=== PATIENT | female | born 1930 | race Caucasian/White ===

== ENCOUNTER 2018-07-02 16:20 | Inpatient (IN) | payer OTHER ==
--- NOTE | 2018-07-02 16:56 | PDOC ---
History of Present Illness - General History Source: Patient Exam Limitations: No Limitations - History of Present Illness Initial Comments: 07/02/18 17:18 The patient is a 87 year old female, with a significant past medical history of R hip replacement and coccyx fracture who presents to the emergency department with an injury s/p fall. The patient reports she was walking around 3:50pm, tripped over a small branch that got tangled on her feet, and fell on her L hip. The patient notes she endorses pain and discomfort across her pelvic region and left hip, secondary to her fall. The patient notes she slowly got up after her fall, scooted to a near bench, and sat down. The patient denies back pain, spine pain, LOC, or hitting her head. The patient denies chest pain, shortness of breath, or dizziness. The patient denies fevers, chills, nausea, vomiting, diarrhea, or constipation. Allergies: latex, penicillins, ibuprofen, and naproxen. Past surgical history: R hip replacement, 3 D&C, breast biopsy, bladder sling, hernia repair, coccyx fracture and both ovaries removed Social history: None reported PCP: Dmitri Brasher <Bre Valle - Last Filed: 07/02/18 17:26> <Arcenio Cruz - Last Filed: 07/02/18 19:01> - General Chief Complaint: Injury Stated Complaint: FELL Time Seen by Provider: 07/02/18 16:43 Past History <Bre Valle - Last Filed: 07/02/18 17:26> - Past Medical History Anemia: No Asthma: No Cancer: No Cardiac Disorders: No CVA: No COPD: No CHF: No Dementia: No Diabetes: No GI Disorders: No Disorders: No HTN: No Hypercholesterolemia: No Liver Disease: No Seizures: No Thyroid Disease: No - Surgical History Abdominal Surgery: Yes (TUBAL LIGATION 1969) Appendectomy: No Cardiac Surgery: No Cholecystectomy: No Lung Surgery: No Neurologic Surgery: No Orthopedic Surgery: Yes (THR RIGHT 2005) - Suicide/Smoking/Psychosocial Hx Smoking History: Never smoked Have you smoked in the past 12 months: No Hx Alcohol Use: Yes (OCCASIONAL) Drug/Substance Use Hx: No Substance Use Type: Alcohol Hx Substance Use Treatment: No <Arcenio Cruz - Last Filed: 07/02/18 19:01> - Past Medical History Allergies/Adverse Reactions: Allergies Allergy/AdvReac Type Severity Reaction Status Date / Time latex [Latex] Allergy Unknown Rash Verified 07/02/18 16:32 Penicillins Allergy Unknown Rash Verified 07/02/18 16:32 ibuprofen [From Motrin] AdvReac Mild STOMACH Verified 07/02/18 16:32 ACHE naproxen [From Naprosyn] AdvReac Mild STOMACH Verified 07/02/18 16:32 ACHE ADHESIVE TAPE Allergy Mild Rash Uncoded 07/02/18 16:32 Home Medications: Ambulatory Orders Cholecalciferol (Vitamin D3) [Vitamin D3 -] 500 unit PO DAILY 07/02/18 Cranberry Fruit [Cranberry] 400 mg PO BID 07/02/18 Red Yeast Rice 1,200 mg PO DAILY 07/02/18 Red Yeast Rice 600 mg PO HS 07/02/18 Vit A/Vit C/Vit E/Zinc/Copper [Icaps Areds Formula Tablet] 1 each PO BID Review of Systems - Review of Systems Able to Perform ROS?: Yes Comments:: 07/02/18 17:19 CONSTITUTIONAL: Absent: Fever, Chills, Diaphoresis, Generalized Weakness, Malaise, Loss of Appetite HEENT: Absent: Rhinorrhea, Nasal Congestion, Throat Pain, Throat Swelling, Difficulty Swallowing, Mouth Swelling, Ear Pain, Eye Pain, Visual Changes CARDIOVASCULAR: Absent: Chest Pain, Syncope, Palpitations, Irregular Heart Rate, Lightheadedness , Peripheral Edema RESPIRATORY: Absent: Cough, Shortness of Breath, SOB with Exertion, Orthopnea, Wheezing, Stridor, Hemoptysis GASTROINTESTINAL: Absent: Abdominal pain, Abdominal Distension, Nausea, Vomiting, Diarrhea, Constipation, Melena, Hematochezia GENITOURINARY: Absent: Dysuria, Frequency, Urgency, Hesitancy, Flank Pain, Genital Pain MUSCULOSKELETAL: Present: hip pain and hip discomfort. Pelvic discomfort. Absent: Myalgia, Arthralgia, Joint Swelling, Back pain, Neck Pain SKIN: Absent: Rash, Itching, Pallor HEMEATOLOGIC/IMMUNOLOGIC: Absent: Easy Bleeding, Easy Bruising, Lymphadenopathy, Frequent infections ENDOCRINE: Absent: Unexplained Weight Gain, Unexplained Weight Loss, Heat Intolerance, Cold Intolerance NEUROLOGIC: Absent: Headache, Focal Weakness, Paresthesias, Vertigo, Lightheadedness, Unsteady Gait, Seizure, Mental Status Changes, Incontinence PSYCHIATRIC: Absent: Anxiety, Depression All Other Systems: Reviewed and Negative <Bre Valle - Last Filed: 07/02/18 17:26> *Physical Exam - Vital Signs Last Vital Signs Temp Pulse Resp BP Pulse Ox 97.7 F 86 16 182/86 H 95 07/02/18 16:25 07/02/18 16:25 07/02/18 16:25 07/02/18 16:25 07/02/18 16:25 - Physical Exam Comments: 07/02/18 17:20 GENERAL: The patient is awake, alert, and fully oriented, in no acute distress. HEAD: Normal with no signs of trauma. EYES: Pupils equal, round and reactive to light, extraocular movements intact, sclera anicteric, conjunctiva clear. ENT: Ears normal, nares patent, oropharynx clear without exudates. Moist mucous membranes. NECK: Normal range of motion, supple without lymphadenopathy, JVD, or masses. LUNGS: Breath sounds equal, clear to auscultation bilaterally. No wheezes, and no crackles. HEART: Regular rate and rhythm, normal S1 and S2 without murmur, rub or gallop. ABDOMEN: Soft, nontender, normoactive bowel sounds. No guarding, no rebound. No masses. PELVIC: (+) tenderness in the L posterior hip region. No deformity, No retention. EXTREMITIES: Normal distal pulses and sensation. Normal range of motion, no edema. No clubbing or cyanosis. No cords, erythema, or tenderness. NEUROLOGICAL: Cranial nerves II through XII grossly intact. Normal speech, normal gait. PSYCH: Normal mood, normal affect. SKIN: Warm, Dry, normal turgor, no rashes or lesions noted. <Bre Valle - Last Filed: 07/02/18 17:26> - Vital Signs Last Vital Signs Temp Pulse Resp BP Pulse Ox 97.7 F 86 16 182/86 H 95 07/02/18 16:25 07/02/18 16:25 07/02/18 16:25 07/02/18 16:25 07/02/18 16:25 <Arcenio Cruz - Last Filed: 07/02/18 19:01> Moderate Sedation - Procedure Monitoring Vital Signs: Procedure Monitoring Vital Signs Temperature 97.7 F 07/02/18 16:25 Pulse Rate 86 07/02/18 16:25 Respiratory Rate 16 07/02/18 16:25 Blood Pressure 182/86 H 07/02/18 16:25 O2 Sat by Pulse Oximetry (%) 95 07/02/18 16:25 <Bre Valle - Last Filed: 07/02/18 17:26> - Procedure Monitoring Vital Signs: Procedure Monitoring Vital Signs Temperature 97.7 F 07/02/18 16:25 Pulse Rate 86 07/02/18 16:25 Respiratory Rate 16 07/02/18 16:25 Blood Pressure 182/86 H 07/02/18 16:25 O2 Sat by Pulse Oximetry (%) 95 07/02/18 16:25 <Arcenio Cruz - Last Filed: 07/02/18 19:01> ED Treatment Course - RADIOLOGY Radiology Studies Ordered: Category Date Time Status HIP & PELVIS-LEFT [RAD] Stat Radiology 07/02/18 16:54 Ordered <Arcenio Cruz - Last Filed: 07/02/18 19:01> Medical Decision Making - Medical Decision Making 07/02/18 18:57 patient is healthy, active 87 y/o [place] out on [place] [employer] [place] [employer] [place] today when she tripped over a branch on the trail daughter tried to catch her but she fell onto the left side no head or neck injury fell onto left hip and now with left hip pain radiating across the pelvis unable to get up or weight bear at all exam with tenderness to L hip area and to L ischial area skin intact, neuro sensation and motor intact cap refill and pulses intact no shortening or rotation of the leg able to flex the hip with some pain xrays of L hip without visible fx pelvis films with questionable fx assess: clinically high suspicion for hip or pelvis fx, but no obvious fx on plain films MRI is not available, so will get CT scan endorsed to Dr Nova pending CT of hip and pelvis <Arcenio Cruz - Last Filed: 07/02/18 19:01> *DC/Admit/Observation/Transfer - Attestations Scribe Attestion: 07/02/18 17:21 Documentation prepared by Bre Valle, acting as medical technologist microbiology for Arcenio Cruz MD <Bre Valle - Last Filed: 07/02/18 17:26> - Attestations Physician Attestion: 07/02/18 19:00 reviewed documentation by scribe and corrected as needed <Arcenio Cruz - Last Filed: 07/02/18 19:01> Diagnosis at time of Disposition: Injury of left hip Qualifiers: Encounter type: initial encounter Qualified Code(s): S79.912A - Unspecified injury of left hip, initial encounter - Referrals Referrals: Dmitri Flores MD [Primary Care Provider] - - Patient Instructions - Post Discharge Activity
--- NOTE | 2018-07-02 19:56 | PDOC ---
*Physical Exam - Vital Signs Last Vital Signs Temp Pulse Resp BP Pulse Ox 97.7 F 86 16 182/86 H 95 07/02/18 16:25 07/02/18 16:25 07/02/18 16:25 07/02/18 16:25 07/02/18 16:25 ED Treatment Course - LABORATORY CBC & Chemistry Diagram: 07/03/18 00:05 07/03/18 00:05 - ADDITIONAL ORDERS Additional order review: Laboratory Results 07/02/18 19:37 Urine Color Yellow Urine Appearance Clear Urine pH 7.5 Urine Protein Negative Urine Glucose (UA) Negative Urine Ketones Negative Urine Blood Negative Urine Nitrite Negative Urine Bilirubin Negative Urine Urobilinogen 0.2 Ur Leukocyte Esterase Trace - Medications Given in the ED: ED Medications Discontinued Medications Generic Name Dose Route Start Last Admin Trade Name Freq PRN Reason Stop Dose Admin Oxycodone/Acetaminophen 1 combo 07/02/18 17:31 07/02/18 17:35 Percocet 5/325 - PO 07/02/18 17:32 1 combo ONCE ONE Administration Medical Decision Making - Medical Decision Making 07/02/18 21:02 Care of this patient received from . CT of the pelvis performed and preliminary interpretation by Imaging Call: Comminuted fracture the inferior pubic ramus, left side. Also, there is a questionable occult fracture involving the anterior/superior aspect of the left side of the sacrum. MRI recommended for further evaluation No fracture of left hip seen. Since the patient has severe pain with any movement and cannot weight-bear, patient will need to be admitted for further evaluation/ orthopedic consult/ gait training/pain control. Patient admitted to 's service with consultation to orthopedic surgery and plan for further physical therapy evaluation. *DC/Admit/Observation/Transfer Diagnosis at time of Disposition: Fracture of left inferior pubic ramus Qualifiers: Encounter type: initial encounter Fracture type: closed Qualified Code(s): S32.592A - Other specified fracture of left pubis, initial encounter for closed fracture - Discharge Dispostion Condition at time of disposition: Stable Decision to Admit order: Yes - Referrals - Patient Instructions - Post Discharge Activity
[2018-07-02 20:13] LABS: BASO % 0.7 % (0-2.0); EOS % 0.2 % (0-4.5); HEMATOCRIT 38.4 % (32.4-45.2); HEMOGLOBIN 12.8 GM/dl (10.7-15.3); LYMPH % 6.9 % (8-40); MCH 31.5 pg (25.7-33.7); MCHC 33.4 g/dl (32.0-36.0); MEAN CELL VOLUME 94.3 fl (80-96); MEAN PLT VOLUME 9.7 fl (7.5-11.1); MONO % 5.5 % (3.8-10.2); NEUT % 86.7 % (42.8-82.8); PLATELET COUNT 183 K/MM3 (134-434); RBC 4.07 M/mm3 (3.60-5.2); RDW 11.7 % (11.6-15.6); WHITE BLOOD COUNT 16.7 K/mm3 (4.0-10.8)
[2018-07-02 20:19] LABS: EPI CELLS FEW /HPF; URINE RBC 0-2 /hpf (0-4)
[2018-07-02 20:22] LABS: ALBUMIN 3.8 g/dl (3.4-5.0); ALK PHOS 61 U/L (45-117); ANION GAP 11 MMOL/L (8-16); BILIRUBIN,TOTAL 0.6 mg/dl (0.2-1); BLOOD UREA NITROGEN 13 mg/dl (7-18); CALCIUM 8.7 mg/dl (8.5-10); CHLORIDE 99 mmol/L (98-107); CO2 24 mmol/L (21-32); CREATININE 0.7 mg/dl (0.55-1.3); GLUCOSE,RANDOM 105 mg/dl (74-106); POTASSIUM 3.9 mmol/L (3.5-5.1); SGOT/AST 33 U/L (15-37); SGPT/ALT 21 U/L (13-61); SODIUM 134 mmol/L (136-145); TOT PROT 6.1 g/dl (6.4-8.2)
[2018-07-02 23:24] VITALS: TEMP 98.6; BMI 18.4
--- NOTE | 2018-07-03 01:53 | HP ---
CHIEF COMPLAINT: PCP: HISTORY OF PRESENT ILLNESS: Seen and examined; please refer to resident note for further historical documentation. Briefly, this is a 87 y/o CF presenting with comminuted fracture the inferior pubic ramus, left side. Also, there is a questionable occult fracture involving the anterior/superior aspect of the left side of the sacrum (per imaging [facility] on CT). She has a prior remote hip replacement. The injury occured due to mechanical fall when ambulating (she tripped). No LOC and did not hit head, no prodromal/syncopal symptoms. Pain improved by percocet given in the ER. Pain is worse with movement. She is neurovascularly intact bilaterally; some pain around the hip on the but did not roll her due to discomfort. She doesn't regularly follow with an orthopedic surgeon. We will consult orthopedics, obtain MRI (recommended by radiology), and control her pain. Recent Travel: [place] PAST MEDICAL HISTORY: Denies any ongoing medical problems aside from macular degeneration; no Rx meds at home PAST SURGICAL HISTORY: [facility]; 3 D&C, breast biopsy, bladder sling, hernia repair, coccyx fracture and both ovaries removed Social History: Nonsmoker, no drug abuse, no EtOH abuse Family History: Asked and noncontributory Allergies latex [Latex] Allergy (Unknown, Verified 07/02/18 16:32) Rash Penicillins Allergy (Unknown, Verified 07/02/18 16:32) Rash ibuprofen [From Motrin] Adverse Reaction (Mild, Verified 07/02/18 16:32) STOMACH ACHE naproxen [From Naprosyn] Adverse Reaction (Mild, Verified 07/02/18 16:32) STOMACH ACHE ADHESIVE TAPE Allergy (Mild, Uncoded 07/02/18 16:32) Rash HOME MEDICATIONS: Home Medications Medication Instructions Recorded Cholecalciferol (Vitamin D3) 500 unit PO DAILY 07/02/18 [Vitamin D3 -] Cranberry Fruit [Cranberry] 400 mg PO BID 07/02/18 Red Yeast Rice 1,200 mg PO DAILY 07/02/18 Red Yeast Rice 600 mg PO HS 07/02/18 Vit A/Vit C/Vit E/Zinc/Copper 1 each PO BID 07/02/18 [Icaps Areds Formula Tablet] REVIEW OF SYSTEMS 10 sys ROS done and negative aside from HPI PHYSICAL EXAMINATION Vital Signs - 24 hr 07/02/18 07/02/18 07/02/18 16:25 21:56 22:19 Temperature 97.7 F 98.8 F 98.6 F Pulse Rate 86 72 Pulse Rate [ 79 Left Radial] Respiratory 16 18 20 Rate Blood Pressure 182/86 H 153/76 Blood Pressure 137/70 [Right Arm] O2 Sat by Pulse 95 96 96 Oximetry (%) GENERAL: Awake, alert, and fully oriented, in no acute distress. HEAD: Normal with no signs of trauma. EYES: Pupils equal, round and reactive to light, extraocular movements intact, sclera anicteric, conjunctiva clear. No lid lag. EARS, NOSE, THROAT: Ears normal, nares patent, oropharynx clear without exudates. Moist mucous membranes. NECK: Normal range of motion, supple without lymphadenopathy, JVD, or masses. LUNGS: Breath sounds equal, clear to auscultation bilaterally. No wheezes, and no crackles. No accessory muscle use. HEART: Regular rate and rhythm, normal S1 and S2 without murmur, rub or gallop. ABDOMEN: Soft, nontender, not distended, normoactive bowel sounds, no guarding, no rebound, no masses. No hepatomegaly or splenomegaly. MUSCULOSKELETAL: Normal range of motion at all joints. No bony deformities or tenderness. No CVA tenderness. Pain to palpation around the site of fall. NEUROLOGICAL: Cranial nerves II-XII intact. Normal speech. Normal gait. PSYCHIATRIC: Cooperative. Good eye contact. Appropriate mood and affect. SKIN: Warm, dry, normal turgor, no rashes or lesions noted, normal capillary refill. Laboratory Results - last 24 hr 07/02/18 07/02/18 07/02/18 19:37 20:00 20:00 WBC 16.7 H RBC 4.07 Hgb 12.8 Hct 38.4 MCV 94.3 MCH 31.5 MCHC 33.4 RDW 11.7 Plt Count 183 MPV 9.7 Absolute Neuts (auto) 14.5 Neutrophils % 86.7 H Lymphocytes % 6.9 L Monocytes % 5.5 Eosinophils % 0.2 Basophils % 0.7 Sodium 134 L Potassium 3.9 Chloride 99 Carbon Dioxide 24 Anion Gap 11 BUN 13 Creatinine 0.7 Creat Clearance w eGFR 79.53 Random Glucose 105 Calcium 8.7 Total Bilirubin 0.6 AST 33 ALT 21 Alkaline Phosphatase 61 Total Protein 6.1 L Albumin 3.8 Urine Color Yellow Urine Appearance Clear Urine pH 7.5 Urine Protein Negative Urine Glucose (UA) Negative Urine Ketones Negative Urine Blood Negative Urine Nitrite Negative Urine Bilirubin Negative Urine Urobilinogen 0.2 Ur Leukocyte Esterase Trace H Urine WBC (Auto) 2-5 Urine RBC (Auto) 0-2 U Epithel Cells (Auto) Few ASSESSMENT/PLAN: Patient presents to the ER after sustaining mechanical fall found to have pelvic fracture. 1) Pelvic Fx -Report states: Comminuted fracture the inferior pubic ramus, left side. Also, there is a questionable occult fracture involving the anterior/superior aspect of the left side of the sacrum. MRI recommended for further evaluation No fracture of left hip seen. -NWB until cleared by ortho -Percocet for pain control; can given PRN APAP intermittently but will keep in mind upper limit for someone her age -DVT px, orthopedic consult. Followup MRI pelvis. 2) Fall -Mechanical in nature; did not have presyncopal component. FENA -PO fluids -PRN replete -Regular diet -NWB until cleared by ortho Visit type - Emergency Visit Emergency Visit: Yes ED Registration Date: 07/02/18 Care time: The patient presented to the Emergency Department on the above date and was hospitalized for further evaluation of their emergent condition. - New Patient This patient is new to me today: Yes Date on this admission: 08/01/18 - Critical Care Critical Care patient: No
[2018-07-03 03:26] LABS: HEMATOCRIT 35.6 % (32.4-45.2); HEMOGLOBIN 12.5 GM/dL (10.7-15.3); MCH 33.1 pg (25.7-33.7); MEAN CELL VOLUME 94.5 fl (80-96); MEAN PLT VOLUME 9.7 fl (7.5-11.1); PLATELET COUNT 144 K/MM3 (134-434); RBC 3.76 M/mm3 (3.60-5.2); RDW 12.1 % (11.6-15.6); WHITE BLOOD COUNT 10.3 K/mm3 (4.0-10.0)
[2018-07-03 04:01] LABS: ANION GAP 5 MMOL/L (8-16); BLOOD UREA NITROGEN 10 mg/dL (7-18); CALCIUM 8.2 mg/dL (8.5-10.1); CHLORIDE 103 mmol/L (98-107); CO2 28 mmol/L (21-32); CREATININE 0.6 mg/dL (0.55-1.3); GLUCOSE,RANDOM 118 mg/dL (74-106); POTASSIUM 3.7 mmol/L (3.5-5.1); SODIUM 136 mmol/L (136-145)
[2018-07-03] MEDS ORDERED: HEPARIN NA (PORCINE) 5,000 UNITS/ML 1ML VIAL SQ SCH (10:00)
--- NOTE | 2018-07-03 11:26 | PN ---
Physical Exam: SUBJECTIVE: Patient seen and examined OBJECTIVE: Vital Signs Period Temp Pulse Resp BP Sys/Gomez Pulse Ox Last 24 Hr 97.7 F-98.8 F 72-86 16-20 137-182/70-86 95-96 GENERAL: The patient is awake, alert, and fully oriented, in no acute distress. HEAD: Normal with no signs of trauma. EYES: PERRL, extraocular movements intact, sclera anicteric, conjunctiva clear. No ptosis. ENT: Ears normal, nares patent, oropharynx clear without exudates, moist mucous membranes. NECK: Trachea midline, full range of motion, supple. LUNGS: Breath sounds equal, clear to auscultation bilaterally, no wheezes, no crackles, no accessory muscle use. HEART: Regular rate and rhythm, S1, S2 without murmur, rub or gallop. ABDOMEN: Soft, nontender, nondistended, normoactive bowel sounds, no guarding, no rebound, no hepatosplenomegaly, no masses. EXTREMITIES: 2+ pulses, warm, well-perfused, no edema. NEUROLOGICAL: Cranial nerves II through XII grossly intact. Normal speech, gait not observed. PSYCH: Normal mood, normal affect. SKIN: Warm, dry, normal turgor, no rashes or lesions noted Laboratory Results - last 24 hr 07/02/18 07/02/18 07/02/18 19:37 20:00 20:00 WBC 16.7 H RBC 4.07 Hgb 12.8 Hct 38.4 MCV 94.3 MCH 31.5 MCHC 33.4 RDW 11.7 Plt Count 183 MPV 9.7 Absolute Neuts (auto) 14.5 Neutrophils % 86.7 H Lymphocytes % 6.9 L Monocytes % 5.5 Eosinophils % 0.2 Basophils % 0.7 Sodium 134 L Potassium 3.9 Chloride 99 Carbon Dioxide 24 Anion Gap 11 BUN 13 Creatinine 0.7 Creat Clearance w eGFR 79.53 Random Glucose 105 Calcium 8.7 Magnesium Total Bilirubin 0.6 AST 33 ALT 21 Alkaline Phosphatase 61 Total Protein 6.1 L Albumin 3.8 Urine Color Yellow Urine Appearance Clear Urine pH 7.5 Urine Protein Negative Urine Glucose (UA) Negative Urine Ketones Negative Urine Blood Negative Urine Nitrite Negative Urine Bilirubin Negative Urine Urobilinogen 0.2 Ur Leukocyte Esterase Trace H Urine WBC (Auto) 2-5 Urine RBC (Auto) 0-2 U Epithel Cells (Auto) Few Blood Type Antibody Screen 07/03/18 07/03/18 07/03/18 00:05 00:05 00:05 WBC 10.3 H RBC 3.76 Hgb 12.5 Hct 35.6 MCV 94.5 MCH 33.1 MCHC 35.0 RDW 12.1 Plt Count 144 MPV 9.7 Absolute Neuts (auto) Neutrophils % Lymphocytes % Monocytes % Eosinophils % Basophils % Sodium 136 Potassium 3.7 Chloride 103 Carbon Dioxide 28 Anion Gap 5 L BUN 10 Creatinine 0.6 Creat Clearance w eGFR 95.01 Random Glucose 118 H Calcium 8.2 L Magnesium 2.0 Total Bilirubin AST ALT Alkaline Phosphatase Total Protein Albumin Urine Color Urine Appearance Urine pH Urine Protein Urine Glucose (UA) Urine Ketones Urine Blood Urine Nitrite Urine Bilirubin Urine Urobilinogen Ur Leukocyte Esterase Urine WBC (Auto) Urine RBC (Auto) U Epithel Cells (Auto) Blood Type O POSITIVE Antibody Screen Negative Active Medications Generic Name Dose Route Start Last Admin Trade Name Freq PRN Reason Stop Dose Admin Heparin Sodium (Porcine) 5,000 unit 07/03/18 10:00 Heparin - SQ BID [facility] ASSESSMENT/PLAN:
--- NOTE | 2018-07-03 12:34 | PN ---
Progress Note (short form) - Note Progress Note: Pt seen and examined. She is an 87 year old female pt s/p recent fall, with c/o pain in the left pelvis, groin, and upper thigh areas. PE B/L LE are NVI No signs of severe trauma Good ROM at both hips, knees, ankles, feet, toes Is able to do a left straight leg raise, with pain X-ray and CT scan show an acute left inferior pubic ramus fracture, Imp Acute left inf pubic ramus fracture Rec No surgery needed, can be DC'd from an ortho pov Tylenol for pain P.T., can be done as an out pt Walker, WBAT ASA 81mg for 6 weeks Can f/u with me as an out pt
--- NOTE | 2018-07-03 13:41 | DS ---
Physical Exam: SUBJECTIVE: Patient seen and examined oob to chair. OBJECTIVE: Vital Signs Period Temp Pulse Resp BP Sys/Gomez Pulse Ox Last 24 Hr 97.7 F-98.8 F 72-86 16-20 137-182/70-86 95-96 PHYSICAL EXAM GENERAL: The patient is awake, alert, and fully oriented, in no acute distress. LUNGS: Breath sounds equal, clear to auscultation bilaterally, no wheezes, no crackles, no accessory muscle use. HEART: Regular rate and rhythm, S1, S2 ABDOMEN: Soft, nontender, nondistended EXTREMITIES: 2+ pulses, warm, well-perfused, no edema. NEUROLOGICAL: Cranial nerves II through XII grossly intact. Normal speech, gait not observed. LABS Laboratory Results - last 24 hr 07/02/18 07/02/18 07/02/18 19:37 20:00 20:00 WBC 16.7 H RBC 4.07 Hgb 12.8 Hct 38.4 MCV 94.3 MCH 31.5 MCHC 33.4 RDW 11.7 Plt Count 183 MPV 9.7 Absolute Neuts (auto) 14.5 Neutrophils % 86.7 H Lymphocytes % 6.9 L Monocytes % 5.5 Eosinophils % 0.2 Basophils % 0.7 Sodium 134 L Potassium 3.9 Chloride 99 Carbon Dioxide 24 Anion Gap 11 BUN 13 Creatinine 0.7 Creat Clearance w eGFR 79.53 Random Glucose 105 Calcium 8.7 Magnesium Total Bilirubin 0.6 AST 33 ALT 21 Alkaline Phosphatase 61 Total Protein 6.1 L Albumin 3.8 Urine Color Yellow Urine Appearance Clear Urine pH 7.5 Urine Protein Negative Urine Glucose (UA) Negative Urine Ketones Negative Urine Blood Negative Urine Nitrite Negative Urine Bilirubin Negative Urine Urobilinogen 0.2 Ur Leukocyte Esterase Trace H Urine WBC (Auto) 2-5 Urine RBC (Auto) 0-2 U Epithel Cells (Auto) Few Blood Type Antibody Screen 07/03/18 07/03/18 07/03/18 00:05 00:05 00:05 WBC 10.3 H RBC 3.76 Hgb 12.5 Hct 35.6 MCV 94.5 MCH 33.1 MCHC 35.0 RDW 12.1 Plt Count 144 MPV 9.7 Absolute Neuts (auto) Neutrophils % Lymphocytes % Monocytes % Eosinophils % Basophils % Sodium 136 Potassium 3.7 Chloride 103 Carbon Dioxide 28 Anion Gap 5 L BUN 10 Creatinine 0.6 Creat Clearance w eGFR 95.01 Random Glucose 118 H Calcium 8.2 L Magnesium 2.0 Total Bilirubin AST ALT Alkaline Phosphatase Total Protein Albumin Urine Color Urine Appearance Urine pH Urine Protein Urine Glucose (UA) Urine Ketones Urine Blood Urine Nitrite Urine Bilirubin Urine Urobilinogen Ur Leukocyte Esterase Urine WBC (Auto) Urine RBC (Auto) U Epithel Cells (Auto) Blood Type O POSITIVE Antibody Screen Negative HOSPITAL COURSE: Date of Admission:07/02/18 Date of Discharge: 07/03/18 Pre hospital course The patient is a 87 year old female, with a significant past medical history of R hip replacement and coccyx fracture who presents to the emergency department with an injury s/p fall. The patient reports she was walking around 3:50pm, tripped over a small branch that got tangled on her feet, and fell on her L hip. The patient notes she endorses pain and discomfort across her pelvic region and left hip, secondary to her fall. The patient notes she slowly got up after her fall, scooted to a near bench, and sat down. The patient denies back pain, spine pain, LOC, or hitting her head. Subsequent hospital course Xray and CT show an acute left inferior pubic ramus fracture. Seen and evaluated by ortho Dr. Martinez. No surgery needed, Tylenol for pain, PT as outpatient. Weight-bearing as tolerated with a walker. ASA 81mg for 6 weeks. Follow up with Dr. Martinez. Minutes to complete discharge: 35 Discharge Summary Reason For Visit: FELL Current Active Problems Fracture of left inferior pubic ramus (Acute) Condition: Stable - Instructions - Home Medications Comprehensive Discharge Medication List: Ambulatory Orders Cholecalciferol (Vitamin D3) [Vitamin D3 -] 500 unit PO DAILY 07/02/18 Cranberry Fruit [Cranberry] 400 mg PO BID 07/02/18 Red Yeast Rice 1,200 mg PO DAILY 07/02/18 Red Yeast Rice 600 mg PO HS 07/02/18 Vit A/Vit C/Vit E/Zinc/Copper [Icaps Areds Formula Tablet] 1 each PO BID This patient is new to me today: Yes Date on this admission: 07/03/18 Emergency Visit: Yes ED Registration Date: 07/02/18 Care time: The patient presented to the Emergency Department on the above date and was hospitalized for further evaluation of their emergent condition. Critical Care patient: No - Discharge Referral Referred to [facility] Yes Physician Referral: Dmitri Flores MD (Int Med)
[2018-07-03 14:28] VITALS: BP 120/50; PULSE 81
--- NOTE | 2018-07-03 23:50 | EKG ---
Test Reason : Blood Pressure : / mmHG Vent. Rate : 087 BPM Atrial Rate : 087 BPM P-R Int : 138 ms QRS Dur : 082 ms QT Int : 366 ms P-R-T Axes : 078 058 066 degrees QTc Int : 440 ms NORMAL SINUS RHYTHM NORMAL ECG NO PREVIOUS ECGS AVAILABLE Confirmed by ELISA SCHULER, LUZ ([id number]) on 07/03/2018 11:50:17 PM Referred By: Confirmed By:LUZ PÉREZ MD
== END 2018-07-03 15:11 | disposition home or self-care (01) | DRG 536 ==
LOC: FER 16:20 → FM/S 22:19
PROVIDERS: ADMIT Internal Medicine; ATTEND Nurse Practitioner Acute Care
DX: S32.592A Other specified fracture of left pubis, initial encounter for closed fracture (principal); H35.30 Unspecified macular degeneration; W01.0XXA Fall on same level from slipping, tripping and stumbling without subsequent striking against object, initial encounter; Y93.89 Activity, other specified; Y92.89 Other specified places as the place of occurrence of the external cause; Z96.641 Presence of right artificial hip joint
CPT/HCPCS: 36415; 71045-TC-FY; 72192-TC; 73523-TC-FY; 73700-TC-RT; 80048; 80053; 81015; 83735; 85025; 85027; 86850; 86900; 86901; 87086; 93005; 97161-GP; 99283-25

== ENCOUNTER 2020-08-08 18:23 | Inpatient (IN) | payer OTHER ==
[2020-08-08] MEDS ORDERED: SODIUM CHLORIDE 1,000 ML IV ONE (18:49)
[2020-08-08 21:03] LABS: EPI CELLS 6 /uL (0-25.1); HYALINE CASTS 2 /uL (0-3.1); URINE APPEARANCE CLEAR; URINE BACTERIA 22 /uL (0-1359); URINE BILIRUBIN NEGATIVE (NEGATIVE); URINE COLOR YELLOW; URINE GLUCOSE (UA) NEGATIVE (NEGATIVE); URINE KETONE 1+ (NEGATIVE); URINE LEUK ESTERASE NEGATIVE (NEGATIVE); URINE NITRITE NEGATIVE (NEGATIVE); URINE PROTEIN 1+ (NEGATIVE); URINE RBC 9 /uL (0-23.9); URINE UROBILINOGEN 0.2 mg/dL (0.2-1.0); URINE WBC 7 /uL (0-25.8)
[2020-08-08 21:13] LABS: BASO % 0.4 % (0-2.0); EOS % 0.2 % (0-4.5); HEMATOCRIT 39.5 % (32.4-45.2); HEMOGLOBIN 13.1 GM/dL (10.7-15.3); LYMPH % 14.8 % (8-40); MCH 31.4 pg (25.7-33.7); MCHC 33.1 g/dl (32.0-36.0); MEAN CELL VOLUME 94.7 fl (80-96); MEAN PLT VOLUME 10.1 fl (7.5-11.1); MONO % 8.4 % (3.8-10.2); NEUT % 76.2 % (42.8-82.8); PLATELET COUNT 192 K/MM3 (134-434); RBC 4.17 M/mm3 (3.60-5.2); RDW 12.9 % (11.6-15.6); WHITE BLOOD COUNT 9.6 K/mm3 (4.0-10.0)
[2020-08-08 21:16] LABS: COCAINE, UR NEGATIVE ng/ml (CUTOFF=300); METHADONE, UR NEGATIVE ng/ml (CUTOFF=300); OPIATES, URI NEGATIVE ng/ml (CUTOFF=300); PHENCYCLIDINE,URINE NEGATIVE ng/ml (CUTOFF=25); URINE AMPHETAMINES NEGATIVE ng/ml (CUTOFF=500); URINE BARBITURATES NEGATIVE ng/ml (CUTOFF=200)
[2020-08-08 21:19] LABS: INR 1.07 (0.83-1.09); PROTHROMBIN TIME (PATIENT) 12.9 SEC (9.7-13.0)
[2020-08-08 21:21] LABS: ACTIVATED PTT 27.5 SECONDS (25.2-36.5)
[2020-08-08 21:21] LABS: URINE BENZODIAZEPINES NEGATIVE ng/ml (CUTOFF=200)
[2020-08-08 21:32] LABS: CHLORIDE 103 mmol/L (98-107); SODIUM 138 mmol/L (136-145)
[2020-08-08 21:34] LABS: ALBUMIN 4.1 g/dl (3.4-5.0); ANION GAP 9 MMOL/L (8-16); BLOOD UREA NITROGEN 17.4 mg/dL (7-18); CO2 26 mmol/L (21-32)
[2020-08-08 21:35] LABS: GLUCOSE,RANDOM 91 mg/dL (74-106)
[2020-08-08 21:37] LABS: CHOLESTEROL 207 mg/dL (50-200); LDL CHOLESTEROL (ONLY SJRH) 86 mg/dL (5-100); TRIGLYCERIDES 43 mg/dL (0-150)
[2020-08-08 21:38] LABS: CREATININE 0.7 mg/dL (0.55-1.3); SGOT/AST 37 U/L (15-37); SGPT/ALT 25 U/L (13-61)
[2020-08-08] MEDS ORDERED: ASPIRIN 81 MG CHEWABLE TABLETS PO ONE (21:38)
[2020-08-08 21:39] LABS: BILIRUBIN,TOTAL 0.6 mg/dL (0.2-1); HDL CHOLESTEROL 96 mg/dL (40-60); TOT PROT 7.3 g/dl (6.4-8.2)
[2020-08-08 21:40] LABS: ALK PHOS 55 U/L (45-117)
[2020-08-08] MEDS ORDERED: ASPIRIN 81 MG CHEWABLE TABLETS ONE (21:46)
[2020-08-08] MEDS ORDERED: SODIUM CHLORIDE 1,000 ML IV SCH (22:15)
[2020-08-08 23:42] LABS: ARTERIAL BLD GAS O2 SATURATION 97.2 mmHg (95-98); ARTERIAL BLOOD GAS BASE EXCESS -2.4 mmol/L (-2-2); ARTERIAL BLOOD GAS PO2 89.8 mmHg (80-100); ARTERIAL BLOOD GAS pH 7.442 (7.350-7.450)
[2020-08-08 23:44] LABS: ALLENS TEST POSITIVE
[2020-08-09] MEDS: SODIUM CHLORIDE 1,000 ML IV SCH (01:00)
[2020-08-09 07:37] LABS: BASO % 0.6 % (0-2.0); EOS % 0.7 % (0-4.5); HEMOGLOBIN 12.4 GM/dL (10.7-15.3); LYMPH % 27.1 % (8-40); MCH 31.6 pg (25.7-33.7); MCHC 33.6 g/dl (32.0-36.0); MEAN CELL VOLUME 94.1 fl (80-96); MEAN PLT VOLUME 10.4 fl (7.5-11.1); MONO % 8.4 % (3.8-10.2); NEUT % 63.2 % (42.8-82.8); PLATELET COUNT 189 K/MM3 (134-434); RBC 3.92 M/mm3 (3.60-5.2); RDW 12.7 % (11.6-15.6); WHITE BLOOD COUNT 7.7 K/mm3 (4.0-10.0)
[2020-08-09 08:06] LABS: ALBUMIN 3.5 g/dl (3.4-5.0)
[2020-08-09 08:09] LABS: CREATININE 0.6 mg/dL (0.55-1.3); MAGNESIUM 2.2 mg/dL (1.8-2.4)
[2020-08-09 08:11] LABS: BLOOD UREA NITROGEN 12.2 mg/dL (7-18); CALCIUM 8.1 mg/dL (8.5-10.1); TOT PROT 6.3 g/dl (6.4-8.2)
[2020-08-09 08:15] LABS: BILIRUBIN,TOTAL 0.7 mg/dL (0.2-1); PHOSPHOROUS 3.1 mg/dL (2.5-4.9)
[2020-08-09] MEDS ORDERED: LORazepam 2 MG/ML SDV VIAL IVPUSH ONE (22:16)
[2020-08-10] MEDS: SODIUM CHLORIDE 1,000 ML IV SCH (01:00)
[2020-08-10 08:40] LABS: HEMATOCRIT 39.5 % (32.4-45.2); HEMOGLOBIN 13.4 GM/dL (10.7-15.3); MCH 31.8 pg (25.7-33.7); MCHC 33.8 g/dl (32.0-36.0); MEAN CELL VOLUME 94.1 fl (80-96); MEAN PLT VOLUME 11.7 fl (7.5-11.1); PLATELET COUNT 165 K/MM3 (134-434); RDW 12.6 % (11.6-15.6); WHITE BLOOD COUNT 14.8 K/mm3 (4.0-10.0)
[2020-08-10 08:45] LABS: ALBUMIN 3.7 g/dl (3.4-5.0); BLOOD UREA NITROGEN 9.9 mg/dL (7-18); CALCIUM 8.5 mg/dL (8.5-10.1)
[2020-08-10 08:47] LABS: CREATININE 0.6 mg/dL (0.55-1.3); PHOSPHOROUS 2.8 mg/dL (2.5-4.9)
[2020-08-10 08:49] LABS: BILIRUBIN,TOTAL 0.7 mg/dL (0.2-1); TOT PROT 6.8 g/dl (6.4-8.2)
[2020-08-10 09:08] LABS: CSF APPEARANCE CLEAR; CSF COLOR COLORLESS; CSF WBC 0
[2020-08-10 09:24] LABS: BF GLUCOSE (CSF ONLY) 60 mg/dL (40-70)
[2020-08-10] MEDS ORDERED: POTASSIUM CHLORIDE TABS 20 MEQ TABLET.ER (FP) PO ONE (10:03)
[2020-08-10] MEDS ORDERED: METOPROLOL TARTRATE 5 MG/5 ML VIAL IVPUSH ONE (10:04)
[2020-08-10] MEDS: METOPROLOL TARTRATE 25 MG TABLET (FP) PO SCH ×2 (10:18→21:51)
[2020-08-10 13:36] LABS: BASO % 0.6 % (0-2.0); EOS % 0.1 % (0-4.5); LYMPH % 11.4 % (8-40); MONO % 5.6 % (3.8-10.2); NEUT % 82.3 % (42.8-82.8)
[2020-08-10] MEDS: CEFTRIAXONE 1 GM in DEXTROSE 5%-WATER - 50 ML IVPB SCH ×3 (14:15→16:27)
[2020-08-10] MEDS ORDERED: cefTRIAXone SODIUM 1 GM VIAL ONE (16:23)
[2020-08-10] MEDS ORDERED: DEXTROSE 5%-WATER - 50 ML IVPB ONE (16:25)
[2020-08-11] MEDS: SODIUM CHLORIDE 1,000 ML IV SCH ×2 (05:14→09:11)
[2020-08-11 08:02] LABS: BASO % 0.4 % (0-2.0); HEMOGLOBIN 13.3 GM/dL (10.7-15.3); LYMPH % 16.6 % (8-40); MCH 31.9 pg (25.7-33.7); MEAN CELL VOLUME 93.9 fl (80-96); MEAN PLT VOLUME 10.4 fl (7.5-11.1); MONO % 7.8 % (3.8-10.2); NEUT % 73.2 % (42.8-82.8); PLATELET COUNT 182 K/MM3 (134-434); RBC 4.15 M/mm3 (3.60-5.2); RDW 12.6 % (11.6-15.6); WHITE BLOOD COUNT 10.8 K/mm3 (4.0-10.0)
[2020-08-11 08:20] LABS: ALBUMIN 3.3 g/dl (3.4-5.0); BLOOD UREA NITROGEN 13.1 mg/dL (7-18)
[2020-08-11 08:21] LABS: BILIRUBIN,TOTAL 0.5 mg/dL (0.2-1); TOT PROT 6.4 g/dl (6.4-8.2)
[2020-08-11 08:24] LABS: CREATININE 0.7 mg/dL (0.55-1.3)
[2020-08-11] MEDS ORDERED: DEXTROSE 5%-WATER - 50 ML IVPB ONE (08:32)
[2020-08-11] MEDS ORDERED: cefTRIAXone SODIUM 1 GM VIAL ONE (08:32)
[2020-08-11] MEDS: METOPROLOL TARTRATE 25 MG TABLET (FP) PO SCH ×2 (09:10→21:13)
[2020-08-11] MEDS: CEFTRIAXONE 1 GM in DEXTROSE 5%-WATER - 50 ML IVPB SCH (09:11)
[2020-08-11] MEDS: POLYETHYLENE GLYCOL 3350 119 GM BTL PO SCH (12:13)
[2020-08-11 16:51] VITALS: BMI 17.5
[2020-08-12 07:25] LABS: BASO % 0.7 % (0-2.0); EOS % 2.9 % (0-4.5); HEMATOCRIT 34.8 % (32.4-45.2); HEMOGLOBIN 11.7 GM/dL (10.7-15.3); LYMPH % 18.1 % (8-40); MCH 31.8 pg (25.7-33.7); MCHC 33.7 g/dl (32.0-36.0); MEAN CELL VOLUME 94.5 fl (80-96); MEAN PLT VOLUME 10.3 fl (7.5-11.1); NEUT % 69.3 % (42.8-82.8); PLATELET COUNT 156 K/MM3 (134-434); RBC 3.68 M/mm3 (3.60-5.2); RDW 12.7 % (11.6-15.6); WHITE BLOOD COUNT 10.2 K/mm3 (4.0-10.0)
[2020-08-12 07:52] LABS: CALCIUM 7.9 mg/dL (8.5-10.1)
[2020-08-12 07:53] LABS: ALBUMIN 2.8 g/dl (3.4-5.0); MAGNESIUM 2.1 mg/dL (1.8-2.4)
[2020-08-12 07:54] LABS: BLOOD UREA NITROGEN 11.6 mg/dL (7-18)
[2020-08-12 07:56] LABS: CREATININE 0.4 mg/dL (0.55-1.3)
[2020-08-12 07:58] LABS: BILIRUBIN,TOTAL 0.4 mg/dL (0.2-1); TOT PROT 5.5 g/dl (6.4-8.2)
[2020-08-12] MEDS ORDERED: cefTRIAXone SODIUM 1 GM VIAL ONE (08:21)
[2020-08-12] MEDS ORDERED: DEXTROSE 5%-WATER - 50 ML IVPB ONE (08:22)
[2020-08-12] MEDS: CEFTRIAXONE 1 GM in DEXTROSE 5%-WATER - 50 ML IVPB SCH (09:43)
[2020-08-12] MEDS: METOPROLOL TARTRATE 25 MG TABLET (FP) PO SCH ×2 (09:43→21:50)
[2020-08-12] MEDS: POLYETHYLENE GLYCOL 3350 119 GM BTL PO SCH (09:43)
[2020-08-12] MEDS: DIVALPROEX SODIUM 250 MG TABLET E.C. PO SCH (21:49)
[2020-08-13 07:50] LABS: CALCIUM 7.9 mg/dL (8.5-10.1)
[2020-08-13 07:51] LABS: BLOOD UREA NITROGEN 11.2 mg/dL (7-18)
[2020-08-13 07:54] LABS: CREATININE 0.5 mg/dL (0.55-1.3)
[2020-08-13] MEDS ORDERED: cefTRIAXone SODIUM 1 GM VIAL ONE (08:52)
[2020-08-13] MEDS ORDERED: DEXTROSE 5%-WATER - 50 ML IVPB ONE (08:53)
[2020-08-13] MEDS: DIVALPROEX SODIUM 250 MG TABLET E.C. PO SCH ×2 (09:24→21:18)
[2020-08-13] MEDS: METOPROLOL TARTRATE 25 MG TABLET (FP) PO SCH ×2 (09:24→21:18)
[2020-08-13] MEDS: CEFTRIAXONE 1 GM in DEXTROSE 5%-WATER - 50 ML IVPB SCH (09:24)
[2020-08-13] MEDS: POLYETHYLENE GLYCOL 3350 119 GM BTL PO SCH (09:25)
[2020-08-13] MEDS: DOCUSATE SODIUM 100 MG CAPSULE (FP) PO SCH (15:09)
[2020-08-14 03:06] LABS: SARS-CoV-2 NAA Not Detected (Not Detected)
[2020-08-14 06:06] VITALS: BP 136/89; PULSE 66; TEMP 98.2
[2020-08-14] MEDS ORDERED: cefTRIAXone SODIUM 1 GM VIAL ONE (09:47)
[2020-08-14] MEDS ORDERED: PT OWN MED DRAWER 7, Y5N ONE (09:47)
[2020-08-14] MEDS ORDERED: DEXTROSE 5%-WATER - 50 ML IVPB ONE (09:47)
[2020-08-14] MEDS: CEFTRIAXONE 1 GM in DEXTROSE 5%-WATER - 50 ML IVPB SCH (10:00)
[2020-08-14] MEDS: POLYETHYLENE GLYCOL 3350 119 GM BTL PO SCH (10:00)
[2020-08-14] MEDS: METOPROLOL TARTRATE 25 MG TABLET (FP) PO SCH (10:01)
[2020-08-14] MEDS: DIVALPROEX SODIUM 250 MG TABLET E.C. PO SCH (10:01)
[2020-08-14] MEDS: DOCUSATE SODIUM 100 MG CAPSULE (FP) PO SCH (10:01)
[2020-08-14] MEDS ORDERED: APIXABAN 2.5 MG TABLET PO SCH (11:00)
[2020-08-14] MEDS ORDERED: ATORVASTATIN CA 20 MG TABLET (FP) PO SCH (22:00)
== END 2020-08-14 13:21 | disposition home or self-care (01) | DRG 101 ==
LOC: JER 18:23 → JERBED 21:40 → J4W 08-09 12:36
PROVIDERS: ADMIT Hospitalist; ATTEND Internal Medicine
PROC: 009U3ZX Drainage of Spinal Canal, Percutaneous Approach, Diagnostic (ICD-10-PCS; principal; 2020-08-09)
DX: R56.9 Unspecified convulsions (principal); R47.01 Aphasia; M62.82 Rhabdomyolysis; N39.0 Urinary tract infection, site not specified; R41.82 Altered mental status, unspecified; I48.0 Paroxysmal atrial fibrillation; D72.829 Elevated white blood cell count, unspecified; I25.119 Atherosclerotic heart disease of native coronary artery with unspecified angina pectoris; E87.6 Hypokalemia; I11.9 Hypertensive heart disease without heart failure
CPT/HCPCS: 36415; 36600; 62272; 70450-TC; 70551-TC; 70552-TC; 71045-TC-FY; 80048; 80053; 80061; 80307; 81003; 82136; 82375; 82525; 82550; 82553; 82607; 82746; 82803; 82945; 82962; 83036; 83615; 83721; 83735; 83918; 84100; 84146; 84157; 84425; 84439; 84443; 84484; 84630; 85025; 85610; 85651; 85730; 86140; 86780; 86788; 86789; 86850; 86900; 86901; 87040; 87070; 87086; 87186; 87205; 87476; 87529; 93005; 93010; 93306-TC; 95816; 97116-GP; 97162-GP; 99285-25; A9579; C9803; U0003; U0005

== ENCOUNTER 2021-03-03 11:31 | Inpatient (IN) | payer OTHER ==
[2021-03-03 12:03] VITALS: BMI 17.9
[2021-03-03] MEDS ORDERED: ASPIRIN 81 MG CHEWABLE TABLETS PO ONE (12:42)
[2021-03-03] MEDS ORDERED: ASPIRIN 81 MG CHEWABLE TABLETS ONE (13:02)
[2021-03-03 13:10] LABS: BASO % 0.2 % (0-2.0); EOS % 0.1 % (0-4.5); HEMATOCRIT 39.5 % (32.4-45.2); HEMOGLOBIN 13.5 GM/dL (10.7-15.3); LYMPH % 7.2 % (8-40); MCH 32.4 pg (25.7-33.7); MCHC 34.1 g/dl (32.0-36.0); MEAN CELL VOLUME 95.1 fl (80-96); MEAN PLT VOLUME 10.3 fl (7.5-11.1); MONO % 6.4 % (3.8-10.2); NEUT % 86.1 % (42.8-82.8); PLATELET COUNT 170 10^3/uL (134-434); RBC 4.15 M/mm3 (3.60-5.2); RDW 12.8 % (11.6-15.6)
[2021-03-03 13:20] LABS: INR 1.3 (0.83-1.09); PROTHROMBIN TIME (PATIENT) 15.2 SEC (9.7-13.0)
[2021-03-03 13:22] LABS: ACTIVATED PTT 31.7 SECONDS (25.2-36.5)
[2021-03-03 13:28] LABS: CHLORIDE 96 mmol/L (98-107); SODIUM 131 mmol/L (136-145)
[2021-03-03 13:30] LABS: ALBUMIN 3.5 g/dl (3.4-5.0); ANION GAP 4 MMOL/L (8-16); CO2 31 mmol/L (21-32)
[2021-03-03 13:31] LABS: BLOOD UREA NITROGEN 13.6 mg/dL (7-18); CALCIUM 8.8 mg/dL (8.5-10.1); GLUCOSE,RANDOM 126 mg/dL (74-106)
[2021-03-03 13:33] LABS: CREATININE 0.7 mg/dL (0.55-1.3); SGOT/AST 26 U/L (15-37); SGPT/ALT 28 U/L (13-61)
[2021-03-03 13:35] LABS: BILIRUBIN,TOTAL 0.4 mg/dL (0.2-1); TOT PROT 6.7 g/dl (6.4-8.2)
[2021-03-03 13:36] LABS: ALK PHOS 54 U/L (45-117)
[2021-03-03] MEDS ORDERED: VALPROATE SODIUM 500 MG/5 ML VIAL IVPB ONE (14:14)
[2021-03-03] MEDS ORDERED: VALPROATE SODIUM INJECTION 500 MG in DEXTROSE 5%-WATER - 100 ML IVPB ONE (14:30)
[2021-03-03 19:41] LABS: PH,URINE 7.5 (5.0-8.0); URINE APPEARANCE CLEAR; URINE BILIRUBIN NEGATIVE (NEGATIVE); URINE COLOR YELLOW; URINE GLUCOSE (UA) NEGATIVE (NEGATIVE); URINE KETONE NEGATIVE (NEGATIVE); URINE LEUK ESTERASE NEGATIVE (NEGATIVE); URINE NITRITE NEGATIVE (NEGATIVE); URINE PROTEIN NEGATIVE (NEGATIVE); URINE UROBILINOGEN 0.2 mg/dL (0.2-1.0)
[2021-03-03] MEDS: DIVALPROEX SODIUM 250 MG TABLET E.C. PO SCH (21:11)
[2021-03-03] MEDS: APIXABAN 2.5 MG TABLET PO SCH (21:12)
[2021-03-03] MEDS: METOPROLOL TARTRATE 25 MG TABLET (FP) PO SCH (21:12)
[2021-03-03] MEDS: ATORVASTATIN CA 20 MG TABLET (FP) PO SCH (21:13)
[2021-03-03] MEDS ORDERED: HEPARIN NA (PORCINE) 5,000 UNITS/ML 1ML VIAL SQ SCH (22:00)
[2021-03-03] MEDS ORDERED: APIXABAN 2.5 MG TABLET PO SCH (22:00)
[2021-03-04 07:51] LABS: BASO % 0.5 % (0-2.0); EOS % 1.3 % (0-4.5); HEMATOCRIT 37.2 % (32.4-45.2); HEMOGLOBIN 12.6 GM/dL (10.7-15.3); LYMPH % 28.4 % (8-40); MCH 32.2 pg (25.7-33.7); MEAN CELL VOLUME 94.8 fl (80-96); MEAN PLT VOLUME 10.4 fl (7.5-11.1); MONO % 8.6 % (3.8-10.2); NEUT % 61.2 % (42.8-82.8); PLATELET COUNT 161 10^3/uL (134-434); RBC 3.92 M/mm3 (3.60-5.2); RDW 12.7 % (11.6-15.6); WHITE BLOOD COUNT 7.1 K/mm3 (4.0-10.0)
[2021-03-04 09:55] LABS: CALCIUM 8.4 mg/dL (8.5-10.1); CREATININE 0.5 mg/dL (0.55-1.3)
[2021-03-04] MEDS ORDERED: ENOXAPARIN NA (PORCINE) 40 MG/0.4 ML DISP.SYRIN SQ SCH (10:00)
[2021-03-04] MEDS: APIXABAN 2.5 MG TABLET PO SCH ×2 (10:15→21:11)
[2021-03-04] MEDS: DIVALPROEX SODIUM 250 MG TABLET E.C. PO SCH ×2 (10:15→21:11)
[2021-03-04] MEDS: ASPIRIN 81 MG CHEWABLE TABLETS PO SCH (10:15)
[2021-03-04] MEDS: METOPROLOL TARTRATE 25 MG TABLET (FP) PO SCH ×2 (10:15→21:11)
[2021-03-04] MEDS: ATORVASTATIN CA 20 MG TABLET (FP) PO SCH (21:11)
[2021-03-05 06:11] VITALS: TEMP 97.8
[2021-03-05 08:21] LABS: BASO % 0.8 % (0-2.0); EOS % 1.5 % (0-4.5); HEMATOCRIT 37.4 % (32.4-45.2); HEMOGLOBIN 12.8 GM/dL (10.7-15.3); LYMPH % 32.7 % (8-40); MCH 32.4 pg (25.7-33.7); MCHC 34.2 g/dl (32.0-36.0); MEAN CELL VOLUME 94.7 fl (80-96); MEAN PLT VOLUME 9.9 fl (7.5-11.1); MONO % 10.2 % (3.8-10.2); NEUT % 54.8 % (42.8-82.8); PLATELET COUNT 144 10^3/uL (134-434); RBC 3.95 M/mm3 (3.60-5.2); RDW 12.9 % (11.6-15.6); WHITE BLOOD COUNT 6.6 K/mm3 (4.0-10.0)
[2021-03-05] MEDS: DIVALPROEX SODIUM 250 MG TABLET E.C. PO SCH (09:24)
[2021-03-05] MEDS: METOPROLOL TARTRATE 25 MG TABLET (FP) PO SCH (09:24)
[2021-03-05] MEDS: ASPIRIN 81 MG CHEWABLE TABLETS PO SCH (09:24)
[2021-03-05] MEDS: APIXABAN 2.5 MG TABLET PO SCH (09:24)
[2021-03-05 10:31] LABS: BILIRUBIN,TOTAL 0.5 mg/dL (0.2-1); BLOOD UREA NITROGEN 11.2 mg/dL (7-18); CALCIUM 8.5 mg/dL (8.5-10.1); CREATININE 0.5 mg/dL (0.55-1.3); MAGNESIUM 2.3 mg/dL (1.8-2.4); TOT PROT 5.8 g/dl (6.4-8.2)
[2021-03-05 14:05] VITALS: BP 104/52; PULSE 59
[2021-03-07 20:13] LABS: BLOOD UREA NITROGEN 10.6 mg/dL (7-18); MAGNESIUM 2.1 mg/dL (1.8-2.4); PHOSPHOROUS 3.4 mg/dL (2.5-4.9)
== END 2021-03-05 16:00 | disposition home or self-care (01) | DRG 92 ==
LOC: JER 11:31 → JERBED 12:47 → J4S 17:55
PROVIDERS: ADMIT Internal Medicine; ATTEND Nurse Practitioner Family
DX: R47.01 Aphasia (principal); G40.209 Localization-related (focal) (partial) symptomatic epilepsy and epileptic syndromes with complex partial seizures, not intractable, without status epilepticus; E87.1 Hypo-osmolality and hyponatremia; I10 Essential (primary) hypertension; E78.5 Hyperlipidemia, unspecified; F41.9 Anxiety disorder, unspecified; I48.91 Unspecified atrial fibrillation; H35.30 Unspecified macular degeneration; I48.0 Paroxysmal atrial fibrillation; M85.80 Other specified disorders of bone density and structure, unspecified site
CPT/HCPCS: 36415; 70450-TC; 71045-TC-FY; 80048; 80053; 80164; 81003; 82550; 82962; 83735; 84100; 84484; 85025; 85610; 85730; 86850; 86900; 86901; 87086; 93005; 93010; 95705; 97116-GP; 97161-GP; 99291; C9803; U0003; U0005

== ENCOUNTER 2021-12-13 11:03 | Emergency (ER) | payer OTHER ==
[2021-12-13 11:15] VITALS: BP 195/88; PULSE 62; RESP 18; TEMP 99; BMI 16.8
[2021-12-13] MEDS ORDERED: SODIUM CHLORIDE 0.9% 500 ML INFUS.BAG IV ONE (11:22)
[2021-12-13 11:41] LABS: HEMATOCRIT 42.8 % (32.4-45.2); HEMOGLOBIN 15.2 G/dL (10.7-15.3); MCH 33.7 pg (25.7-33.7); MCHC 35.4 g/dl (32.0-36.0); MEAN CELL VOLUME 95.4 fl (80-96); MEAN PLT VOLUME 10.5 fl (7.5-11.1); PLATELET COUNT 184.8 10^3/uL (134-434); RBC 4.49 10^6/uL (3.60-5.2); RDW 14.3 % (11.6-15.6); WHITE BLOOD COUNT 8.1 10^3/uL (4.0-10.8)
[2021-12-13 11:54] LABS: INR 1.36 (0.83-1.09); PROTHROMBIN TIME (PATIENT) 15.7 SEC (9.7-13.0)
[2021-12-13 12:09] LABS: PLATELET ESTIMATE ADEQUATE
[2021-12-13 12:30] LABS: ALBUMIN 3.4 g/dl (3.4-5.0); BILIRUBIN,TOTAL 0.7 mg/dl (0.2-1); CALCIUM 8.4 mg/dl (8.5-10); CREATININE 0.5 mg/dl (0.55-1.3); PHOSPHOROUS 3.7 mg/dl (2.5-4.9); TOT PROT 5.9 g/dl (6.4-8.2)
== END 2021-12-13 14:08 | disposition home or self-care (01) ==
LOC: FER 11:03
DX: R19.7 Diarrhea, unspecified (principal)
CPT/HCPCS: 0241U-QW; 36415; 80053; 82272; 83735; 84100; 84484; 85027; 85610; 86850; 86900; 86901; 93005; 99284-25

== ENCOUNTER 2022-05-29 16:18 | Observation (INO) | payer OTHER ==
[2022-05-29] MEDS ORDERED: ACETAMINOPHEN 1000 MG/100 ML BAG IVPB ONE (17:05)
[2022-05-29 17:49] LABS: BASO % 0.2 % (0-2.0); EOS % 0.3 % (0-4.5); HEMATOCRIT 39.6 % (32.4-45.2); HEMOGLOBIN 13.2 GM/dL (10.7-15.3); MCHC 33.4 g/dl (32.0-36.0); MEAN CELL VOLUME 95.9 fl (80-96); MEAN PLT VOLUME 10.5 fl (7.5-11.1); MONO % 4.1 % (3.8-10.2); NEUT % 93.4 % (42.8-82.8); PLATELET COUNT 147 10^3/uL (134-434); RBC 4.13 M/mm3 (3.60-5.2); RDW 13.1 % (11.6-15.6); WHITE BLOOD COUNT 20.8 K/mm3 (4.0-10.0)
[2022-05-29] MEDS ORDERED: ACETAMINOPHEN INJECTION 100 ML IVPB ONE (17:49)
[2022-05-29 18:18] LABS: ALBUMIN 3.4 g/dl (3.4-5.0)
[2022-05-29 18:20] LABS: CREATININE 0.7 mg/dL (0.55-1.3)
[2022-05-29 18:22] LABS: TOT PROT 6.6 g/dl (6.4-8.2)
[2022-05-29 18:29] LABS: BILIRUBIN,TOTAL 1.1 mg/dL (0.2-1)
[2022-05-29 19:16] LABS: EPI CELLS 11 /uL (0-25.1); HYALINE CASTS 0 /uL (0-3.1); URINE APPEARANCE CLEAR; URINE BACTERIA 5 /uL (0-1359); URINE BILIRUBIN 1+ (NEGATIVE); URINE COLOR DK YELLOW; URINE GLUCOSE (UA) NEGATIVE (NEGATIVE); URINE KETONE TRACE (NEGATIVE); URINE LEUK ESTERASE TRACE (NEGATIVE); URINE NITRITE NEGATIVE (NEGATIVE); URINE PROTEIN 1+ (NEGATIVE); URINE RBC 54 /uL (0-23.9); URINE WBC 42 /uL (0-25.8)
[2022-05-29] MEDS ORDERED: SODIUM CHLORIDE 0.9% 500 ML INFUS.BAG IV ONE (19:55)
[2022-05-30] MEDS ORDERED: MELATONIN 5 MG TABLETS PO PRN (03:15)
[2022-05-30] MEDS ORDERED: POLYETHYLENE GLYCOL (HEALTHYLAX) 3350 17 GM PACKET PO PRN (03:21)
[2022-05-30] MEDS ORDERED: SODIUM CHLORIDE 1,000 ML IV SCH (05:00)
[2022-05-30 05:58] LABS: BASO % 0.3 % (0-2.0); EOS % 1.2 % (0-4.5); HEMATOCRIT 37.3 % (32.4-45.2); HEMOGLOBIN 12.5 GM/dL (10.7-15.3); LYMPH % 4.2 % (8-40); MCH 32.2 pg (25.7-33.7); MCHC 33.4 g/dl (32.0-36.0); MEAN CELL VOLUME 96.3 fl (80-96); MEAN PLT VOLUME 10.3 fl (7.5-11.1); MONO % 4.8 % (3.8-10.2); NEUT % 89.5 % (42.8-82.8); PLATELET COUNT 135 10^3/uL (134-434); RBC 3.87 M/mm3 (3.60-5.2); RDW 13.3 % (11.6-15.6); WHITE BLOOD COUNT 12.6 K/mm3 (4.0-10.0)
[2022-05-30 06:23] LABS: CALCIUM 7.8 mg/dL (8.5-10.1)
[2022-05-30 06:24] LABS: BLOOD UREA NITROGEN 11.6 mg/dL (7-18)
[2022-05-30 06:27] LABS: BILIRUBIN,DIRECT 0.4 mg/dL (0.0-0.2); CREATININE 0.4 mg/dL (0.55-1.3); PHOSPHOROUS 3.2 mg/dL (2.5-4.9)
[2022-05-30 06:29] LABS: BILIRUBIN,TOTAL 0.7 mg/dL (0.2-1); TOT PROT 5.3 g/dl (6.4-8.2)
[2022-05-30 06:52] LABS: ALBUMIN 2.7 g/dl (3.4-5.0)
[2022-05-30] MEDS ORDERED: ENOXAPARIN NA (PORCINE) 40 MG/0.4 ML DISP.SYRIN SQ SCH (10:00)
[2022-05-30] MEDS ORDERED: METOPROLOL TARTRATE 25 MG TABLET (FP) ONE (10:12)
[2022-05-30] MEDS ORDERED: APIXABAN 2.5 MG TABLET ONE (10:12)
[2022-05-30] MEDS ORDERED: DIVALPROEX SODIUM 125 MG TABLET E.C. ONE (10:12)
[2022-05-30] MEDS: DIVALPROEX SODIUM 250 MG TABLET E.C. PO SCH ×2 (10:26→22:36)
[2022-05-30] MEDS: METOPROLOL TARTRATE 25 MG TABLET (FP) PO SCH ×2 (10:26→22:36)
[2022-05-30] MEDS: APIXABAN 2.5 MG TABLET PO SCH ×2 (10:26→22:36)
[2022-05-30 10:48] LABS: INR 1.62 (0.83-1.09); PROTHROMBIN TIME (PATIENT) 18.7 SEC (9.7-13.0)
[2022-05-30 19:48] VITALS: BMI 16.0
[2022-05-30] MEDS ORDERED: SENNOSIDES 8.6MG TABLET (FP) PO SCH (22:00)
[2022-05-30] MEDS ORDERED: ATORVASTATIN CA 20 MG TABLET (FP) PO SCH (22:00)
[2022-05-31 08:50] VITALS: BP 137/63; PULSE 64; RESP 16; TEMP 97.5
[2022-05-31 08:58] LABS: HEMATOCRIT 32.9 % (32.4-45.2); HEMOGLOBIN 11.2 GM/dL (10.7-15.3); MCH 33.2 pg (25.7-33.7); MCHC 34.2 g/dl (32.0-36.0); MEAN PLT VOLUME 10.6 fl (7.5-11.1); PLATELET COUNT 123 10^3/uL (134-434); RBC 3.39 M/mm3 (3.60-5.2); RDW 13.7 % (11.6-15.6)
[2022-05-31 09:08] LABS: INR 1.39 (0.83-1.09); PROTHROMBIN TIME (PATIENT) 16.1 SEC (9.7-13.0)
[2022-05-31] MEDS: APIXABAN 2.5 MG TABLET PO SCH (09:19)
[2022-05-31] MEDS: DIVALPROEX SODIUM 250 MG TABLET E.C. PO SCH (09:19)
[2022-05-31] MEDS: METOPROLOL TARTRATE 25 MG TABLET (FP) PO SCH (09:19)
[2022-05-31 09:29] LABS: ALBUMIN 2.5 g/dl (3.4-5.0); CALCIUM 7.9 mg/dL (8.5-10.1)
[2022-05-31 09:32] LABS: CREATININE 0.5 mg/dL (0.55-1.3)
[2022-05-31 09:33] LABS: ALBUMIN 2.5 g/dl (3.4-5.0); BILIRUBIN,TOTAL 0.7 mg/dL (0.2-1); TOT PROT 5.1 g/dl (6.4-8.2)
[2022-05-31 09:36] LABS: BILIRUBIN,DIRECT 0.2 mg/dL (0.0-0.2)
[2022-05-31 09:38] LABS: BILIRUBIN,TOTAL 0.5 mg/dL (0.2-1); TOT PROT 5.1 g/dl (6.4-8.2)
[2022-05-31] MEDS ORDERED: MULTIVITAMINS (DAILY MVI) TABLET (FP) PO SCH (10:00)
[2022-05-31] MEDS ORDERED: ASCORBIC ACID 500 MG TABLET (FP) PO SCH (10:00)
== END 2022-05-31 15:56 | disposition home or self-care (01) ==
LOC: JER 16:18 → JERBED 05-30 02:55 → J7W 05-30 15:13
PROVIDERS: ADMIT Internal Medicine; ATTEND Internal Medicine
PROC: 3E033NZ Introduction of Analgesics, Hypnotics, Sedatives into Peripheral Vein, Percutaneous Approach (ICD-10-PCS; principal; 2022-05-30)
PROC: 3E0337Z Introduction of Electrolytic and Water Balance Substance into Peripheral Vein, Percutaneous Approach (ICD-10-PCS; 2022-05-30)
DX: I48.0 Paroxysmal atrial fibrillation (principal); W18.2XXA Fall in (into) shower or empty bathtub, initial encounter; Y93.E1 Activity, personal bathing and showering; Y92.002 Bathroom of unspecified non-institutional (private) residence as the place of occurrence of the external cause; R56.9 Unspecified convulsions; Z87.891 Personal history of nicotine dependence; R79.89 Other specified abnormal findings of blood chemistry; Z79.01 Long term (current) use of anticoagulants; Z87.440 Personal history of urinary (tract) infections
CPT/HCPCS: 0241U-QW; 36415; 70450-TC; 71045-TC-FY; 72125-TC; 72170-TC-FY; 74177-TC; 76705-TC; 80048; 80053; 80076; 80164; 81003; 82248; 82436; 82550; 82553; 83735; 83935; 84100; 84133; 84300; 84443; 84484; 85025; 85027; 85610; 85651; 86140; 86704; 86803; 87086; 87340; 87517; 93005; 93010; 96361; 96374; 99285-25; G0378; Q9967